=== PATIENT | female | born 1960 | race Caucasian/White ===

== ENCOUNTER 2019-03-04 01:59 | Inpatient (IN) | payer MEDICARE ==
[~2019-03-04] VITALS: Ht 165.1 cm; Wt 48.1 kg
[2019-03-04 02:12] LABS: BASOPHILS ABSOLUTE AUTO 0.05 K/mm3 (0.00-0.23); BASOPHILS PERCENT AUTO 0 % (0-2); EOSINOPHILS ABSOLUTE AUTO 0.04 K/mm3 (0.00-0.68); EOSINOPHILS PERCENT AUTO 0 % (0-6); Hematocrit 49.4 % (33.0-51.0); Hemoglobin 14.6 g/dL (11.5-16.0); Mean Corpuscular HGB 29.9 pg (26.0-34.0); Mean Corpuscular HGB Conc 29.6 g/dL (31.5-36.5); Mean Corpuscular Volume 101 fL (80-100); Platelet Count 319 K/mm3 (150-400); RDW Coefficient Variation 12.8 % (11.7-14.2); Red Blood Cell Count 4.88 M/mm3 (3.80-5.20)
[2019-03-04 02:17] LABS: IMMATURE GRAN ABSOLUTE AUTO 0.15 K/mm3 (0.00-0.10); IMMATURE GRAN PERCENT AUTO 1 % (0-1); LYMPHOCYTES ABSOLUTE AUTO 8.18 K/mm3 (0.84-5.20); LYMPHOCYTES PERCENT AUTO 60 % (21-46); MONOCYTES ABSOLUTE AUTO 0.83 K/mm3 (0.16-1.47); MONOCYTES PERCENT AUTO 6 % (4-13); NEUTROPHILS ABSOLUTE AUTO 4.45 K/mm3 (1.96-9.15); NEUTROPHILS PERCENT AUTO 32 % (41-73)
[2019-03-04 02:25] LABS: PCO2 Arterial 54.3 mmHg (35-45); PO2 Arterial 139 mmHg (80-100); pH Blood Arterial 7.21 (7.35-7.45)
[2019-03-04 02:32] LABS: Alanine Aminotransfer (ALT/SGP 113 U/L (12-78); Albumin, Blood 3.7 g/dL (3.4-5.0); Albumin/Globulin Ratio 1.2 (0.8-1.8); Alk Phos 108 U/L (50-136); Anion Gap 17 mmol/L (6-16); Aspartate Aminotrans (AST/SGOT 189 U/L (12-37); Bilirubin, Total 0.4 mg/dL (0.1-1.0); Blood Urea Nitrogen 12 mg/dL (8-24); Bun/Creatinine Ratio 14.7 (12.0-20.0); CO2, Blood 18 mmol/L (21-32); Calcium, Blood 9.5 mg/dL (8.5-10.1); Chloride, Blood 106 mmol/L (98-108); Creatinine, Blood 0.82 mg/dL (0.40-1.00); Globulin, Blood 3.2 g/dL (2.2-4.0); Glomerular Filtration Rate >60 (60-); Glucose, Blood 281 mg/dL (70-99); Potassium, Blood 3.6 mmol/L (3.5-5.5); Sodium, Blood 141 mmol/L (136-145); Total Protein, Blood 6.9 g/dL (6.4-8.2); Troponin I <0.015 ng/mL (0.000-0.040)
[2019-03-04 03:01] LABS: Source, Urine Catheter
[2019-03-04 03:04] LABS: Bilirubin, Urine Neg (Neg); Blood, Urine 3+ (Neg); Glucose Qualitative, Urine 2+ (Neg); Ketones, Urine Neg (Neg); Leukocyte Esterase, Urine Neg (Neg); Nitrite, Urine Neg (Neg); Protein, Urine 3+ (Neg); Urobilinogen, Urine NORM (Normal)
[2019-03-04 03:11] LABS: Appearance, Urine Clear (Clear); Color, Urine Yellow (P-Yellow)
[2019-03-04 03:15] LABS: Amorphous Light (0-Heavy); Bacteria Mod /hpf; Mucus Light (0-Heavy); Squamous Epithelial Cells Not Seen /hpf (Few); White Blood Cells, Urine 0-2 /hpf (0-5)
[2019-03-04 03:17] LABS: U Amphetamine Screen Not Detected; U Barbituate Screen Not Detected; U Benzodiazapine Screen Not Detected; U Buprenorphine Screen DETECTED; U Cannabinoids Screen Not Detected; U Cocaine Screen Not Detected; U Methadone Screen Not Detected; U Methamphetamine Screen Not Detected; U Opiates Screen Not Detected; U Oxycodone Screen Not Detected; U Phencyclidine Screen Not Detected; U Propoxyphene Screen Not Detected
--- NOTE | 2019-03-04 04:27 | NUR ---
ADMIT TO ICU: PT HYPOTENSION ON ARRIVAL WITH BP 79/65. PT TRANSFERRED TO ICU 6 VIA [facility] WITH RN, RT AN EMT STUDENT AT BEDSIDE. PT SEDATED WITH MINIMAL AROUSAL TO VERBAL STIMULI. LS COARSE T/O AND DIMINISHED IN BILAT BASES R>L WITH BIOX 99% ON VENT SETTINGS AC16, VC 430/65, PEEP 5, FIO2 30%. HEART SOUNDS S1 AND S2 AUSCULTATED WITH MONITOR SHOWING NSR WITH HR 93. SKIN PINK, WARM AND DRY. SCRATCHES TO L ARM. PPP BILAT. 18G IV RAC WITH PROPOFOL @ 5.8CC/HR= 20MCG/KG/MIN. 20G IV LAC S/L. OG TO LIS WITH THICK, CHUNKY BROWN IN TUBE. 16R SNYDER TEMP IN PLACE AND DRAINING CLEAR YELLOW URINE. PT ATTEMPTED TO SIT UP AND PULL TOWARD ETT WHEN ORAL CARE WAS DONE. BILAT WRIST RESTRAINTS ON. PROPOFOL BEING TITRATED.
--- NOTE | 2019-03-04 06:05 | NUR ---
SHIFT SUMMARY: PT REMAINS INTUBATED WITH BILAT WRIST RESTAINTS ON. EASILY AROUSED, CAN BECOME VERY RESTLESS AT TIME WITH ATTMPTS TO SIT UP AND REACH FOR ETT. PROPOFOL AT 50MCG/KG/MIN. WALLET WAS FOUND IN BELONGINGS BAG WITH ID SHOWING PT TO BE; LINDSEY NICOLE ; 1960. ADMITTING WAS NOTIFIED, BUT STATE THEY ARE UNABLE TO CHANGE ANYTHING AT THIS TIME.
[2019-03-04 06:52] LABS: Adenovirus Not Detected (NOT DETECT); Bordetella pertussis Not Detected (NOT DETECT); Chlamydophila pneumoniae Not Detected (NOT DETECT); Coronavirus 229E Not Detected (NOT DETECT); Coronavirus HKU1 Not Detected (NOT DETECT); Coronavirus NL63 Not Detected (NOT DETECT); Coronavirus OC43 Not Detected (NOT DETECT); Human Metapneumovirus Not Detected (NOT DETECT); Human Rhinovirus/Enterovirus Not Detected (NOT DETECT); Influenza A Not Detected (NOT DETECT); Influenza A/2009-H1 Not Detected (NOT DETECT); Influenza A/H1 Not Detected (NOT DETECT); Influenza A/H3 Not Detected (NOT DETECT); Influenza B Not Detected (NOT DETECT); Mycoplasma pneumoniae Not Detected (NOT DETECT); Parainfluenza Virus 1 Not Detected (NOT DETECT); Parainfluenza Virus 2 Not Detected (NOT DETECT); Parainfluenza Virus 3 Not Detected (NOT DETECT); Parainfluenza Virus 4 Not Detected (NOT DETECT); Respiratory Syncytial Virus Not Detected (NOT DETECT)
--- NOTE | 2019-03-04 07:30 | NUR ---
NURSING SUMMARY AWAKE, ALERT, ORIENTED X4, FOLLOWING COMMANDS, REMOVED RESTRAINTS, NOT PULLING AT TUBE. COMMUNICATING NEEDS AND ASKING QUESTIONS BY WRITING ON PEN/PAPER. SR - ST ON MONITOR, HR 88 - 104, DENIES CHEST PAIN/DISCOMFORT. LUNGS CLEAR, DIMINISHED THROUGHOUT, VENTILATOR SETTINGS, 16/450/5/30%, O2 SATS 100%, PATIENT ASKING TO REMOVE THE INTUBATION TUBE. DR. NAGEL AT BEDSIDE, TRIALING WEAN FROM VENTILATOR AND STOPPED STOPPED THE PROPOFOL. CALLED RADHA, RT, TO HELP WITH EXTUBATION. SNYDER IN PLACE DRAINING CLEAR YELLOW URINE. DENIES NEED FOR BM. BILATER AC IV SITES, INFUSING NS AT 75 ML/HR.
--- NOTE | 2019-03-04 07:43 | NUR ---
DR. NAGEL AT BEDSIDE FOR EVALUATION.
--- NOTE | 2019-03-04 08:05 | NUR ---
EXTUBATION RADHA, RT, AT BEDSIDE, EXTUBATED PT. PT PLACED ON 2L O2 NC, SATS REMAINING AT 100%, DENIES SOB AND DIFFICULTY BREATHING, C/O SORE THROAT. INSTRUCTED PT THAT A SORE THROAT IS NORMAL AND THAT SHE NEEDS TO REST HER THROAT AND VOICE FOR A COUPLE OF HOURS BEFORE WE CAN START GIVING PO FLUIDS. VERBALIZED UNDERSTANDING. CALLED ADMITTING TO COME ID PT AND CHANGE REGISTRATION FROM "RESENDEZ" TO PT'S REAL NAME. INFORMATION OBTAINED, AWAITING NAME CHANGE.
[2019-03-04 08:28] LABS: Anion Gap 6 mmol/L (6-16); Blood Urea Nitrogen 14 mg/dL (8-24); Bun/Creatinine Ratio 19.8 (12.0-20.0); CO2, Blood 27 mmol/L (21-32); Calcium, Blood 8.4 mg/dL (8.5-10.1); Chloride, Blood 109 mmol/L (98-108); Creatinine, Blood 0.71 mg/dL (0.40-1.00); Glomerular Filtration Rate >60 (60-); Glucose, Blood 102 mg/dL (70-99); Potassium, Blood 3.6 mmol/L (3.5-5.5); Sodium, Blood 142 mmol/L (136-145)
--- NOTE | 2019-03-04 09:07 | NUR ---
DR. NAGEL AT BEDSIDE FOR EVALUATION. GIVING ORDER FOR PCU STATUS.
[2019-03-04] MEDS ORDERED: ZESTRIL40 MG PO (11:31)
[2019-03-04] MEDS ORDERED: LEVSOD50 PO (11:33)
[2019-03-04] MEDS ORDERED: PRED20 PO (11:36)
[2019-03-04] MEDS ORDERED: DOXY100 PO (11:37)
[2019-03-04 14:42] LABS: Alanine Aminotransfer (ALT/SGP 116 U/L (12-78); Albumin, Blood 3.5 g/dL (3.4-5.0); Albumin/Globulin Ratio 1.2 (0.8-1.8); Alk Phos 109 U/L (50-136); Anion Gap 10 mmol/L (6-16); Aspartate Aminotrans (AST/SGOT 69 U/L (12-37); Bilirubin, Total 0.4 mg/dL (0.1-1.0); Blood Urea Nitrogen 12 mg/dL (8-24); Bun/Creatinine Ratio 17.3 (12.0-20.0); CO2, Blood 24 mmol/L (21-32); Calcium, Blood 8.5 mg/dL (8.5-10.1); Chloride, Blood 107 mmol/L (98-108); Creatinine, Blood 0.69 mg/dL (0.40-1.00); Globulin, Blood 2.9 g/dL (2.2-4.0); Glomerular Filtration Rate >60 (60-); Glucose, Blood 124 mg/dL (70-99); Potassium, Blood 3.8 mmol/L (3.5-5.5); Sodium, Blood 141 mmol/L (136-145); Total Protein, Blood 6.4 g/dL (6.4-8.2)
[2019-03-04 14:51] LABS: Hematocrit 46.5 % (33.0-51.0); Hemoglobin 14.3 g/dL (11.5-16.0); Mean Corpuscular HGB 30.3 pg (26.0-34.0); Mean Corpuscular HGB Conc 30.8 g/dL (31.5-36.5); Mean Corpuscular Volume 99 fL (80-100); Mean Platelet Volume 10.9 fL (9.1-12.4); Platelet Count 222 K/mm3 (150-400); RDW Standard Deviation 48.2 fL (35.1-46.3); Red Blood Cell Count 4.72 M/mm3 (3.80-5.20); White Blood Cell Count 7.51 K/mm3 (4.00-11.30)
[2019-03-04 20:32] LABS: Anion Gap 5 mmol/L (6-16); Blood Urea Nitrogen 14 mg/dL (8-24); Bun/Creatinine Ratio 20.2 (12.0-20.0); CO2, Blood 29 mmol/L (21-32); Calcium, Blood 8.7 mg/dL (8.5-10.1); Chloride, Blood 108 mmol/L (98-108); Creatinine, Blood 0.69 mg/dL (0.40-1.00); Glomerular Filtration Rate >60 (60-); Glucose, Blood 162 mg/dL (70-99); Potassium, Blood 4.1 mmol/L (3.5-5.5); Sodium, Blood 142 mmol/L (136-145)
--- NOTE | 2019-03-04 22:52 | NUR ---
ASSUMED CARE OF PT AT 1915 PT ALERT AND ORIENTED LAYING IN BED. PT TEARY STATES THAT SHE IS ANXIOUS AND IS REQEUESTING ATIVAN. LUNG SOUNDS DIM THROGHOUT WITH WHEEZES. PT'S O2 SATS WNL ON RA. PT EATING AND DRINKING WITH NO DIFFICULTY. SEE FULL SHIFT ASSESSMENT.
[2019-03-05 03:46] LABS: BASOPHILS PERCENT AUTO 0 % (0-2); EOSINOPHILS PERCENT AUTO 0 % (0-6); Hematocrit 44.8 % (33.0-51.0); Hemoglobin 14.1 g/dL (11.5-16.0); IMMATURE GRAN ABSOLUTE AUTO 0.07 K/mm3 (0.00-0.10); IMMATURE GRAN PERCENT AUTO 1 % (0-1); LYMPHOCYTES PERCENT AUTO 6 % (21-46); MONOCYTES PERCENT AUTO 2 % (4-13); Mean Corpuscular HGB 30.1 pg (26.0-34.0); Mean Corpuscular HGB Conc 31.5 g/dL (31.5-36.5); Mean Platelet Volume 10.9 fL (9.1-12.4); NEUTROPHILS ABSOLUTE AUTO 8.83 K/mm3 (1.96-9.15); NEUTROPHILS PERCENT AUTO 91 % (41-73); Platelet Count 253 K/mm3 (150-400); RDW Coefficient Variation 13.1 % (11.7-14.2); RDW Standard Deviation 46.3 fL (35.1-46.3); Red Blood Cell Count 4.69 M/mm3 (3.80-5.20)
[2019-03-05 03:47] LABS: Mean Corpuscular Volume 96 fL (80-100)
[2019-03-05 04:03] LABS: Anion Gap 5 mmol/L (6-16); Blood Urea Nitrogen 21 mg/dL (8-24); Bun/Creatinine Ratio 27.3 (12.0-20.0); CO2, Blood 28 mmol/L (21-32); Calcium, Blood 8.4 mg/dL (8.5-10.1); Chloride, Blood 110 mmol/L (98-108); Creatinine, Blood 0.77 mg/dL (0.40-1.00); Glomerular Filtration Rate >60 (60-); Glucose, Blood 127 mg/dL (70-99); Magnesium, Blood 2.4 mg/dL (1.6-2.4); Potassium, Blood 4.4 mmol/L (3.5-5.5); Sodium, Blood 143 mmol/L (136-145)
--- NOTE | 2019-03-05 04:20 | NUR ---
PT AWAKE AND COMPLAINING OF BACK PAIN. PT ABLE TO AMBULATE TO TOILET WITH STANDBY ASSIST WITH NO DIFFICULTY. PT REPORTED FEELING A LITTLE DIZZY BUT APPEARED STEADY ON HER FEET. WHEN TUCKED BACK IN BED, PT BEGAN CRYING AND WAS ANXIOUS. PT EXPRESSED THAT BEING INTUBATED WAS "TERRIFYING" AND THAT SHE CAN'T STOP THINKING ABOUT IT. PT MEDICATED FOR PAIN.
--- NOTE | 2019-03-05 06:08 | NUR ---
SHIFT SUMMARY NO ACUTE CHANGES OVERNIGHT. PT ALERT AND ORIENTED. PT CONTINUES TO BE ANXIOUS AND HAS PERIODS OF CRYING. PT MEDICATED WITH ONE DOSE OF ATIVAN FOR ANXIETY AND ONE DOSE OF FENTANYL FOR BACK PAIN. (SEE PREVIOUS NOTES) PT STANDBY ASSIST TO USE TOILET. PT STEADY ON HER FEET BUT REPORTS FEELING DIZZY. SAT IN MID 90'S ON RA. OCCASIONAL NONPRODUCTIVE COUGH. LUNGS DIM WITH WHEEZES THROUGHOUT. PT NSR-ST. WILL REPORT TO DAYSHIFT NURSE.
--- NOTE | 2019-03-05 07:30 | NUR ---
ASSUMED CARE OF PATIENT; SEE ASSESSMENT CHARTING FOR DETAILS. PATIENT PLEASANT BUT C/O R LATERAL CHEST PAIN WITH COUGHING; COUGH BECOMING MOIST WITH SMALL AMOUNT OF PRODUCTION; SPUTUM TANNISH IN COLOR; ON IV ANTIBIOTIC TX. MONITOR REMAINS NSR TO ST; BP MODERATELY ELEVATED. UP FOR BRP WITHOUT ASSIST. DR. ROBE ECHEVERRIA; PATIENT CHANGED TO MEDICAL STATUS WITHOUT TELEMETRY. PHYSICIAN WANTS PATIENT TO BE MORE AMBULATORY AND SEE HOW SHE TOLERATES ACTIVITY. PATIENT WITH HIGH ANXIETY; STRESSES OUT EASILY AND WORRIES ABOUT EVERYTHING; RN TRYING TO PERSUADE PATIENT TO TAKE SLOW, DEEP BREATHS AND TRY NOT TO THINK ABOUT ALL THAT CONCERNS HER OUTSIDE OF THE HOSPITAL.
--- NOTE | 2019-03-05 09:30 | NUR ---
PATIENT REFUSED LOVENOX INJECTION; STATES IT IS STUPID.
--- NOTE | 2019-03-05 12:00 | NUR ---
PATIENTS' NEPHEW IN TO VISIT; BROUGHT PATIENT SOME PERSONAL ITEMS AND SOME FOOD; PATIENT UNHAPPY WITH FOOD AT HOSPITAL. MONITOR OFF; MED. FLOOR STATUS WITHOUT TELEMETRY; VS CHECKED AT THIS TIME.
--- NOTE | 2019-03-05 15:15 | NUR ---
REPORT GIVEN TO TYE KIM RN; PATIENT TO TRANSFER TO ROOM 310.
--- NOTE | 2019-03-05 15:21 | NUR ---
TRANSFERRED TO ROOM 310, VIA W/C; BELONGINGS AND CHART SENT WITH PATIENT; ESCORTED BY [facility].
--- NOTE | 2019-03-05 16:23 | NUR ---
ICU TRANSFER PT ARRIVE TO MED FLOOR APPROX 1530 FROM ICU 6. SHE IS A/O X4, PLEASANT AFFECT. STATE SHE DECLINED LAST NEB TX IN ICU HOWEVER 2 THIS TIME FEELS IT WOULD BE HELPFUL, STATE MILD SOB. LUNGS CLEAR, DECREASED, BIOX 94% RA. RT UP FOR NEB TX. PT STATE BREATHING IMPROVED. FLUIDS & SNACKS PROVIDED. ORIENTED TO ROOM & CALL SYSTEM. VSS.
--- NOTE | 2019-03-06 04:51 | NUR ---
SHIFT SUMMARY PT SITTING UPRIGHT IN BED FOR A WHILE AT START OF SHIFT, TALKING WITH VISITOR. PT C/O THROAT BEING SORE R/T INTUBATION. PT REFUSED PAIN MEDICATION. PT ALSO REFUSED ORDERED HS MEDS UNLESS SHE COULD HAVE MORE ATIVAN. PT C/O COUGHING AND SOB, LUNGS T/O VERY DIMINISHED AND TIGHT. PT DENIED BEING A SMOKER, BUT LATER REPORTED THAT SHE HAD QUIT SOME TIME AGO AND THEN STARTED AGAIN RECENTLY. SMOKING CESSATION ENCOURAGED, BUT PT JUST BRUSHED IT OFF. CONTINUED TO C/O INCREASED SORE THROAT, BUT ALSO CONTINUED TO DECLINE ANYTHING FOR PAIN. A&O AND INDEPENDANT IN RM. HOPING TO GO HOME TODAY. CALL LT IN REACH.
[2019-03-06] MEDS ORDERED: AZIT250 PO (10:17)
[2019-03-06] MEDS ORDERED: GUAI600T33 PO (10:19)
[2019-03-06] MEDS ORDERED: NAPR500 PO (10:20)
[2019-03-06] MEDS ORDERED: TRAM50 PO (10:22)
[2019-03-06] MEDS ORDERED: ALBU90OI61 INH (10:27)
--- NOTE | 2019-03-06 10:39 | NUR ---
discharge PT IS A/O X4, PLEASANT, STATE FEELING IMPROVED HOWEVER CONTINUING COUGH, SORE RIBS, HOWEVER STATE FEELING IMPROVED. DR NAGEL STATE OK FOR D/C TODAY. PLACE ORDERS, FAXED TO [facility]/REQUEST. IV D/C INTACT. PT CALL FAMILY FOR TRANSPORT HOME. D/C INSTRUCT PROVIDED. STICKER OPERATOR IN TO SEE PT FOR SAFE D/C. W/C ESCORT FROM HOSP PROVIDED.
[2019-03-06] MEDS ORDERED: ALBU3IS INH (20:14)
[2019-03-06] MEDS ORDERED: SYNTHROID25 MCG PO (20:14)
== END 2019-03-06 10:58 | disposition home or self-care (01) | DRG 208 ==
LOC: ER 01:59 → EDBEDREQ 03:11 → EDBD 03:22 → ICUE 03:22 → ICUW 03:22 → ICUE 03:30 → MEDS 03-05 15:17 → ENPENDDIS 03-06 09:40 → MEDS 03-06 10:58
PROVIDERS: Emergency Medicine; Hospitalist; ADMIT Internal Medicine
PROC: 0BH17EZ Insertion of Endotracheal Airway into Trachea, Via Natural or Artificial Opening (ICD-10-PCS; principal; 2019-03-04)
PROC: 5A1935Z Respiratory Ventilation, Less than 24 Consecutive Hours (ICD-10-PCS; 2019-03-04)
DX: J96.01 Acute respiratory failure with hypoxia (principal); G93.41 Metabolic encephalopathy; E87.2 Acidosis; J44.1 Chronic obstructive pulmonary disease with (acute) exacerbation; J40 Bronchitis, not specified as acute or chronic; F17.210 Nicotine dependence, cigarettes, uncomplicated; R73.9 Hyperglycemia, unspecified; E03.9 Hypothyroidism, unspecified; I10 Essential (primary) hypertension; K21.9 Gastro-esophageal reflux disease without esophagitis; J96.02 Acute respiratory failure with hypercapnia; E86.0 Dehydration; F41.9 Anxiety disorder, unspecified
CPT/HCPCS: 31500; 36415; 36600; 51702; 71045; 80048; 80053; 81001; 82803; 82947; 83036; 83605; 83735; 83880; 84145; 84484; 85025; 85027; 87086; 87486; 87581; 87633; 87798; 93005; 93010; 94002; 94640; 94644; 94760; 96374-59; 99285-25; J0330; J0456; J1650; J2060; J2250; J2405; J2704; J2930; J3010; J7030; J7050; J7512

== ENCOUNTER 2019-03-06 18:31 | Inpatient (IN) | payer MEDICARE ==
--- NOTE | 2019-03-05 22:45 | NUR ---
ASSUMED CARE REPORT TAKEN FROM ED RN. PT TO UNIT ON STRETHER ABLE TO TRANSFER SELF TO HOSP BED. PT DENIES SOB OR CP AT THIS TIME. RESP EVEN UNLBORED ON RA. SATS >95%. NO SKIN ISSUES NOTED. PT WAS DC'D FROM HOSPITAL THIS AM, CAME BACK TO ED W/ C/O CP AND SOB. PT TO HAVE ECHO AND ANGIO IN THE AM. DENIES FURTHER NEEDS. HEPARIN GTT INFUSING IN PIV. CALL LIGHT IN REACH. PT INDEPENDENT IN ROOM.
[~2019-03-06] VITALS: Ht 157.5 cm; Wt 47.0 kg
[~2019-03-06 18:31] MED LIST: ALBU90OI61 INH; AZIT250 PO; DOXY100 PO; GUAI600T33 PO; LEVSOD50 PO; NAPR500 PO; PRED20 PO; TRAM50 PO; ZESTRIL40 MG PO
[2019-03-06 19:50] LABS: Alanine Aminotransfer (ALT/SGP 57 U/L (12-78); Albumin, Blood 3.6 g/dL (3.4-5.0); Albumin/Globulin Ratio 1.2 (0.8-1.8); Alk Phos 98 U/L (50-136); Anion Gap 8 mmol/L (6-16); Aspartate Aminotrans (AST/SGOT 21 U/L (12-37); Bilirubin, Total 0.3 mg/dL (0.1-1.0); Blood Urea Nitrogen 22 mg/dL (8-24); Bun/Creatinine Ratio 29.9 (12.0-20.0); CO2, Blood 26 mmol/L (21-32); Calcium, Blood 8.6 mg/dL (8.5-10.1); Chloride, Blood 105 mmol/L (98-108); Creatinine, Blood 0.74 mg/dL (0.40-1.00); Globulin, Blood 3.1 g/dL (2.2-4.0); Glomerular Filtration Rate >60 (60-); Glucose, Blood 132 mg/dL (70-99); Potassium, Blood 4.4 mmol/L (3.5-5.5); Sodium, Blood 139 mmol/L (136-145); Total Protein, Blood 6.7 g/dL (6.4-8.2); Troponin I 0.165 ng/mL (0.000-0.040)
[2019-03-06] MEDS ORDERED: SYNTHROID25 MCG PO (20:14)
[2019-03-06] MEDS ORDERED: ALBU3IS INH (20:14)
[2019-03-06 22:34] LABS: BASOPHILS ABSOLUTE AUTO 0.01 K/mm3 (0.00-0.23); BASOPHILS PERCENT AUTO 0 % (0-2); EOSINOPHILS PERCENT AUTO 0 % (0-6); Hematocrit 45.7 % (33.0-51.0); Hemoglobin 14.5 g/dL (11.5-16.0); IMMATURE GRAN ABSOLUTE AUTO 0.06 K/mm3 (0.00-0.10); IMMATURE GRAN PERCENT AUTO 1 % (0-1); LYMPHOCYTES ABSOLUTE AUTO 1.31 K/mm3 (0.84-5.20); LYMPHOCYTES PERCENT AUTO 12 % (21-46); MONOCYTES ABSOLUTE AUTO 0.57 K/mm3 (0.16-1.47); MONOCYTES PERCENT AUTO 5 % (4-13); Mean Corpuscular HGB 30.1 pg (26.0-34.0); Mean Corpuscular HGB Conc 31.7 g/dL (31.5-36.5); Mean Corpuscular Volume 95 fL (80-100); Mean Platelet Volume 10.7 fL (9.1-12.4); NEUTROPHILS ABSOLUTE AUTO 8.58 K/mm3 (1.96-9.15); NEUTROPHILS PERCENT AUTO 82 % (41-73); Platelet Count 256 K/mm3 (150-400); RDW Coefficient Variation 12.9 % (11.7-14.2); RDW Standard Deviation 45.5 fL (35.1-46.3); Red Blood Cell Count 4.81 M/mm3 (3.80-5.20); White Blood Cell Count 10.53 K/mm3 (4.00-11.30)
[2019-03-06 22:49] LABS: International Normalized Ratio 0.94
[2019-03-06 23:00] LABS: CPK Creatine Kinase 77 U/L (26-193)
--- NOTE | 2019-03-07 05:27 | NUR ---
SHIFT SUMMARY PT SLEEPING IN ROOM COMFORTABLY. PT HAD NO ACUTE CHANGES IN STATUS SINCE ARRIVAL. PT SLEPT WELL T/O NIGHT. NPO AFTER MIDNIGHT FOR AM ECHO AND ANGIO. DENIES ANY FURTHER CP, OR SOB. RESP EVEN UNLBOARED ON RA W/ SATS >92%. DENIES OTHER NEEDS AT THIS TIME. HEPARIN GTT INFUSING IN PIV. CALL LIGHT IN REACH.
[2019-03-07 06:33] LABS: BASOPHILS ABSOLUTE AUTO 0.01 K/mm3 (0.00-0.23); BASOPHILS PERCENT AUTO 0 % (0-2); EOSINOPHILS ABSOLUTE AUTO 0.02 K/mm3 (0.00-0.68); EOSINOPHILS PERCENT AUTO 0 % (0-6); Hematocrit 45.2 % (33.0-51.0); Hemoglobin 14.3 g/dL (11.5-16.0); IMMATURE GRAN ABSOLUTE AUTO 0.06 K/mm3 (0.00-0.10); IMMATURE GRAN PERCENT AUTO 1 % (0-1); LYMPHOCYTES ABSOLUTE AUTO 3.18 K/mm3 (0.84-5.20); LYMPHOCYTES PERCENT AUTO 28 % (21-46); MONOCYTES ABSOLUTE AUTO 0.76 K/mm3 (0.16-1.47); MONOCYTES PERCENT AUTO 7 % (4-13); Mean Corpuscular HGB 29.7 pg (26.0-34.0); Mean Corpuscular HGB Conc 31.6 g/dL (31.5-36.5); Mean Corpuscular Volume 94 fL (80-100); Mean Platelet Volume 10.5 fL (9.1-12.4); NEUTROPHILS ABSOLUTE AUTO 7.19 K/mm3 (1.96-9.15); NEUTROPHILS PERCENT AUTO 64 % (41-73); Platelet Count 270 K/mm3 (150-400); RDW Coefficient Variation 13.2 % (11.7-14.2); RDW Standard Deviation 45.6 fL (35.1-46.3); Red Blood Cell Count 4.81 M/mm3 (3.80-5.20); White Blood Cell Count 11.22 K/mm3 (4.00-11.30)
[2019-03-07 06:54] LABS: Alanine Aminotransfer (ALT/SGP 47 U/L (12-78); Albumin, Blood 3.1 g/dL (3.4-5.0); Albumin/Globulin Ratio 1.2 (0.8-1.8); Alk Phos 79 U/L (50-136); Anion Gap 3 mmol/L (6-16); Aspartate Aminotrans (AST/SGOT 12 U/L (12-37); Bilirubin, Total 0.3 mg/dL (0.1-1.0); Blood Urea Nitrogen 21 mg/dL (8-24); Bun/Creatinine Ratio 28.2 (12.0-20.0); CO2, Blood 30 mmol/L (21-32); Calcium, Blood 8.3 mg/dL (8.5-10.1); Chloride, Blood 107 mmol/L (98-108); Cholesterol 207 mg/dL (50-200); Creatinine, Blood 0.75 mg/dL (0.40-1.00); Globulin, Blood 2.6 g/dL (2.2-4.0); Glomerular Filtration Rate >60 (60-); Glucose, Blood 84 mg/dL (70-99); HDL Cholesterol 70 mg/dL (>39); LDL/HDL RATIO 1.5; Low Density Lipoprotein Chol 106 mg/dL (0-110); Potassium, Blood 4.2 mmol/L (3.5-5.5); Sodium, Blood 140 mmol/L (136-145); Total Protein, Blood 5.7 g/dL (6.4-8.2); Triglycerides 154 mg/dL (30-160); Very Low Density Lipoprot Chol 30 mg/dL (6-32)
--- NOTE | 2019-03-07 09:19 | NUR ---
Manager Validation Dr. Bobo here to see the patient. Echocardiogram was completed almost an hour ago. The pt this morning has denied any chest pressure, difficulty breathing, or pain, except for generalized thorax tenderness/soreness which she states has been since her recent intubation for COPD exacerbation, for which she was actually discharged yesterday from the hospital.
--- NOTE | 2019-03-07 10:25 | NUR ---
Miralax and oral antiobiotic held this morning per pt request; she thinks that it would upset her stomach since she is NPO for the procedure.
--- NOTE | 2019-03-07 11:51 | NUR ---
echocardiogram complete
--- NOTE | 2019-03-07 11:52 | NUR ---
Spoke with Dr. Bobo regarding high blood pressure. Doctor states that he will change the medications.
--- NOTE | 2019-03-07 12:11 | NUR ---
The pt was alert, a bit "foggy" and forgetful upon arrival from the heart center just before 1100 am, but compliant with instructions, albeit with frequent reminders. STated that she felt very tired and just wanted to sleep. Took medications by mouth after eating one pudding and drinking water. Right groin site was clear of swelling, bruising, hematoma, and bleeding. Distal pulses are palpable, and feet are pink, warm, dry with cap refill brisk equally bilaterally. She denies any pain. Groin site and pulses were checked with every vital sign check, and unchanged. Blood pressure was reported to the automotive tire tester as previously documented. Assisted pt to right side lying position at 11:30, and she states relief from back discomfort.
--- NOTE | 2019-03-07 15:53 | NUR ---
right groin site has remained without bruising, bleeding, swelling or evidence of hematoma. She states some tenderness at the site. She has been up out of bed to use the toilet and sitting up to eat her lunch. States that she just feels very tired and just "awful", but denies any pain other than tenderness at the right groin site and general thorax soreness which has been ongoing for several days. Diastolic blood pressure remains elevated, systolic pressure is WNL.
--- NOTE | 2019-03-07 18:56 | NUR ---
The pt has had an uneventful recovery this afternoon. She wakes up to eat her meals and to go to the bathroom; otherwise, she has wanted to sleep; states that she is tired and feeling overall crummy today.
--- NOTE | 2019-03-07 19:09 | NUR ---
Bedside report given to Lisbeth Adam RN, at this time. Verified right groin site together at the bedside; no bleeding, swelling, hematoma, or bruising noted. The pt states tender to gentle palpation and soreness.
--- NOTE | 2019-03-07 19:30 | NUR ---
ASSUMED CARE PT RESTING IN ROOM AT THIS TIME. REPORTING INCREASED THORACIC/ BACK PAIN. PER DAY SHIFT PT WENT HAD ECHO AND ANGIO DONE TODAY. PT HAS R GROIN SITE, SITE IS WNL NO HEMATOMAS NOTED. PER DAY SHIFT PT HAS BEEN UP TO RR SINCE PROCEDURE AND TOLERATING FAIR. PT REPORTS TENDERNESS TO GROIN SITE. PT WILL BE MEDICATED PER EMAR FOR PAIN. RESP EVEN UNLBAORED ON RA W/ SATS >92%. CALL LIGHT IN REACH.
--- NOTE | 2019-03-08 06:18 | NUR ---
SHIFT SUMMARY PT SLEEPING IN ROOM AT THIS TIME. NO ACUTE CHANGES IN STATUS T/O NIGHT. PT DID COMPLAIN OF INCREASED MUSKULOSKELETAL PAIN IN THORACIC AND BACK. PT WAS MEDICATED FOR PAIN AND K PAD WAS APPLIED TO BACK FOR COMFORT. PT WAS MEDICATED THIS AM FOR ANXIETY R/T PAIN. PT NOW SLEEPING COMFORTABLY. RESP EVEN UNLBAORED ON RA W/ SATS >92%. CALL LIGHT IN REACH.
[2019-03-08] MEDS ORDERED: ALBU3IS INH (11:03)
[2019-03-08] MEDS ORDERED: ATOR40TA PO (11:04)
[2019-03-08] MEDS ORDERED: XARELTO20 MG PO (11:06)
[2019-03-08] MEDS ORDERED: METO25 PO (11:06)
--- NOTE | 2019-03-08 11:55 | NUR ---
discharge home Pt discharged home. Pt will follow up as soon as she gets home. She plans on calling to get a pcp in [place] tomorrow. No insurance currently. She's trying to get on [place] [employer] plan. Post groin site care goven to her. Faxed medications to [facility] per her request. continue pot.
== END 2019-03-08 11:46 | disposition home or self-care (01) | DRG 282 ==
LOC: ER 18:31 → PCU 18:32 → ER 18:32 → PCU 18:32
PROVIDERS: Emergency Medicine; ADMIT Internal Medicine
PROC: 4A023N7 Measurement of Cardiac Sampling and Pressure, Left Heart, Percutaneous Approach (ICD-10-PCS; principal; 2019-03-07)
PROC: B2111ZZ Fluoroscopy of Multiple Coronary Arteries using Low Osmolar Contrast (ICD-10-PCS; 2019-03-07)
DX: I21.4 Non-ST elevation (NSTEMI) myocardial infarction (principal); F17.210 Nicotine dependence, cigarettes, uncomplicated; J44.9 Chronic obstructive pulmonary disease, unspecified; I10 Essential (primary) hypertension; E03.9 Hypothyroidism, unspecified; F41.9 Anxiety disorder, unspecified; Z79.1 Long term (current) use of non-steroidal anti-inflammatories (NSAID); Z79.891 Long term (current) use of opiate analgesic; Z79.899 Other long term (current) drug therapy
CPT/HCPCS: 36415; 71046; 80053; 80061; 82550; 84484; 85025; 85610; 85730; 93005; 93010; 93306; 93458; 94640; 94760; 94762; 96361; 96372; 96374; 96375; 96376; 99152; 99153; 99285-25; A9270-GY; C1760; C1769; G0378; J1644; J1650; J2250; J3010; J7030; Q9967